=== PATIENT | male | born 1950 | race African-American/Black ===

== ENCOUNTER 2019-08-12 10:29 | Inpatient (IN) | payer OTHER ==
[~2019-08-12] VITALS: Ht 172.7 cm; Wt 65.1 kg
--- NOTE | ~2019-08-12 | HC ---
[facility] [place] [address] [address] CONSULTATION Name: SIS JEFFRIES Room #: 216-P ADM IN M.R.#: [id number] Admission: 08/12/19 Attend Phys: Wero Mack MD Discharge: Date of : 50 Report #: [id number] THIS REPORT FOR: //name// CC: Wero Garza HISTORY OF PRESENT ILLNESS: The patient is a 68-year-old male. He apparently was transferred here from [facility]. I have some limited records from the old records to obtain this history and he does not talk. He is alert, but has a prior trachea so difficult to have communication. He has a history of a mechanical mitral valve. The issue is he keeps bleeding significantly from his AV fistula due to presumably elevated pressures due to venous outflow problem. He has been seen at [facility] and sent home. He has not been dialyzed for the last 4 days. He says the hemoglobin down to 6.7. He denies chest pain, some mild dyspnea. No diagnostic EKG changes. He is given his medications, although he is currently is n.p.o. He is hypothermic and on a heating blanket, but he seems alert. Apparently, he has a history of recurrent Clostridium difficile colitis. MEDICATIONS: His home medications have been atorvastatin, Flonase, gabapentin, levothyroxine, Remeron, Protonix, sulfasalazine for a wound or an ulcer. Triamcinolone, vancomycin, warfarin, lorazepam, Zofran p.r.n. ALLERGIES: No known drug allergies. SOCIAL HISTORY: He is not . He has children, some alcohol and tobacco use, he states. FAMILY HISTORY: He does not believe there has been prior coronary history. There has been longstanding hypertension in his family. 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 He states he may have had an infarct and difficulty vena cava, possibly 2 bypasses with that valve. I do not have those records. Hypertension; hypercholesterolemia; anemia from AV fistula problems; end-stage renal disease, on dialysis; DJD; chronic hypoxemia with prior trach. LABORATORY DATA: INR is 3.0 this morning, we will repeat. Creatinine is 4.0, potassium 3.8, H and H are 7.4 and 22, white count 7.4. KUB shows a gastric tube and nonobstructive bowel gas. PHYSICAL EXAMINATION: GENERAL: He is currently, alert, in sinus rhythm. VITAL SIGNS: Blood pressure 104/60, pulse is 70s. HEENT: Eyes reveal xanthelasmas. Pharynx is clear. NECK: Shows preserved upstrokes without JVD or bruits. LUNGS: Marked prolonged expiratory phase. [facility] [address] [place] [address] CONSULTATION Name: SIS JEFFRIES Room #: 216-P [facility] IN M.R.#: [id number] Admission: 08/12/19 Attend Phys: Wero Mack MD Discharge: Date of : 50 Report #: [id number] CARDIOVASCULAR: S1, S2, distant heart tones. ABDOMEN: Soft, slightly protuberant, nontender. EXTREMITIES: Reveal there is a left BKA well healed. In the right, I cannot palpate DP or PT. There is a wound on the right knee and also on the sacral area and right heel. MUSCULOSKELETAL: Generalized arthritic changes with the left BKA. NEUROLOGIC: Appears to be intact. ASSESSMENT: 1. Mechanical mitral valve with INR 3.0. 2. Recurrent AV fistula bleeding due to suspected elevated pressures and venous stenosis (we will intervention by Dr. Milner in a.m.). 3. Hypertension. 4. Hypercholesterolemia. 5. Severe acute on chronic anemia. 6. End-stage renal disease, on hemodialysis. 7. Multiple decubiti as stated, nonhealing wounds. RECOMMENDATIONS AND PLAN: We are holding on the INR. We will repeat in the morning and the laboratory work per Renal. He is going to dialyze, but would like Dr. Milner to attempt intervention. Dr. Milner is okay to intervene with INRs less than 3. His cardiovascular status, I will obtain echo and EKG in the morning and try to obtain more cardiac history. Apparently, he has had a prior infarct and bypass, although there is no confirmation of this. We will follow with you. Thank you for asking me to assist in the care of this patient. By: [id number] /nt
[2019-08-12 10:32] VITALS: BP 115/65
[2019-08-12] MEDS ORDERED: LIPITOR10 MG PO (10:48)
[2019-08-12] MEDS ORDERED: NEURONTIN 300M300 M2 PO (10:48)
[2019-08-12] MEDS ORDERED: FLONASE 0.05%50 MCG NARES (10:48)
[2019-08-12] MEDS ORDERED: LEVO-T50 MCG PO (10:48)
[2019-08-12] MEDS ORDERED: REMERON15 M2 PO (10:49)
[2019-08-12] MEDS ORDERED: PROTONIX40 M2 PO (10:50)
[2019-08-12] MEDS ORDERED: LIQUID PROTEIN54 ML PO (10:51)
[2019-08-12] MEDS ORDERED: SSD CREAM 1% 5050 GM TOP (10:51)
[2019-08-12] MEDS ORDERED: TRIAMCINOLONE16.9 ML NASAL (10:52)
[2019-08-12 10:53] LABS: ABSOLUTE NEUTROPHILS 5.7 thou/uL (1.4-8.2); BASOPHILS 1.2 % (0.0-2.0); EOSINOPHILS 0.4 % (0.0-3.0); HEMATOCRIT 22.2 % (42.0-52.0); HEMOGLOBIN 7.4 gm/dL (14.0-18.0); MCH 33.3 pg (26.0-34.0); MCHC 33.3 g/dL (28.0-37.0); MCV 100.2 fL (80.0-100.0); MONOCYTES 9.7 % (1.0-8.0); PLATELET COUNT 120 thou/uL (150-400); POLYS 81.7 % (36.0-66.0); RBC 2.21 mil/uL (4.50-6.00); RDW 25.8 % (10.5-14.5); WBC 7.4 thou/uL (4.0-11.0)
[2019-08-12] MEDS ORDERED: VANCOMYCIN HCL250 MG PO (10:53)
[2019-08-12] MEDS ORDERED: COUMADIN 3 MG TA3 M1 PO (10:53)
[2019-08-12] MEDS ORDERED: ACETAMINOPHEN500 M1 PO (10:54)
[2019-08-12] MEDS ORDERED: LORAZEPAM 2MG2 MG/M1 IV PUSH (10:55)
[2019-08-12] MEDS ORDERED: ONDANSETRON4 MG/2 ML IV PUSH (10:56)
[2019-08-12 11:05] LABS: PROTIME 31.4 Seconds (9.3-11.4)
[2019-08-12 11:06] LABS: CALCIUM 8.4 mg/dL (8.5-10.1); MAGNESIUM 2.1 mg/dL (1.8-2.4); POTASSIUM 3.8 mmol/L (3.5-5.1)
[2019-08-12 11:19] LABS: ANISOCYTOSIS 3+; MACROCYTES 1+; MICROCYTES 1+; POLYCHROMASIA OCCASIONAL
[2019-08-12 11:29] VITALS: BP 102/57
[2019-08-12 12:39] VITALS: BP 99/59
--- NOTE | 2019-08-12 12:57 | NUR ---
PT FAMILY CALLED AND AWARE THAT PATIENT IS NOW IN ROOM 216
[2019-08-12 13:15] VITALS: BP 100/60
[2019-08-12 16:25] VITALS: BP 123/68
--- NOTE | 2019-08-12 18:49 | NUR ---
PT CAR ASSUMED APPROX 1315. PT ALERT AND ORIENTED X2 BUT APPROPRIATE IN CONVERSATION AND FOLLOWS COMMANDS. PT COMMUNICATING WITH WRITTEN WORDS. PT TRACH MASK PLACED WITH FACILITY EQUIPMENT UPON ARRIVAL. DENIES SOA AND PAIN. VSS UPON ARRIVAL BUT PT BECAME HYPOTHERMIC THIS EVENING. ORDER FOR KAYLEEN OLVERA OBTAINED. PT PLACED IN AT THIS TIME. PT DOBHOFF IS NOT COMPATIBLE WITH THIS FACILITY'S SYRINGES. DR ERVIN APPROVED TO WAIT AND GET PROMISE LIASON TO BRING COMPATIBLE SYRINGE. BRIDLE IN PLACE WELL AND IF DOBHOFF WERE CHANGED OUT THE BRIDLE COULD NOT BE REPLACED. TUBE FEEDING ON HOLD AND MEDS PER TUBE ARE BEING HELD. PT HAS GOOD IV ACCESS. FECAL MANAGEMENT SYSTEM PLACED TO NOT DISTRESS PT WITH MULTIPLE CLEAN UPS. CDIFF ISOLATION INITIATED. DAUGHTER WAS UNABLE TO ASSIST WITH ADMISSION DUE TO BEING AT WORK. PT PARTIALLY PARTICIPATED. NO DISTRESS NOTED AT THIS TIME.
[2019-08-12 21:53] VITALS: BP 108/64
[2019-08-13] VITALS (46 sets, daily range): BP systolic 81–177; BP diastolic 29–74
[2019-08-13 05:00] LABS: HEMATOCRIT 21.3 % (42.0-52.0); MCH 33.1 pg (26.0-34.0); MCHC 33.1 g/dL (28.0-37.0); MCV 100.2 fL (80.0-100.0); RBC 2.13 mil/uL (4.50-6.00); RDW 27.1 % (10.5-14.5); WBC 6.5 thou/uL (4.0-11.0)
--- NOTE | 2019-08-13 05:03 | NUR ---
PT ALERT AND ORIENTED X2. VITALS STABLE. TRACH INTACT. SUCTIONED PERIODICALLY. O2 SATS 100%. EPISODES OF ANXIOUSNESS, TRYING TO CLIMB OUT OF BED NOTED. PT EASILY REORIENTED. CONTACT PRECAUTION MAINTAINED FOR C-DIFF. POSSIBLE FISTULA GRAFT REPAIR TODAY, DEPENDING ON INR. WILL CONTINUE TO MONITOR.
[2019-08-13 05:10] LABS: CALCIUM 8.3 mg/dL (8.5-10.1); CREATININE 4.4 mg/dL (0.7-1.3); POTASSIUM 3.8 mmol/L (3.5-5.1)
[2019-08-13 05:19] LABS: INR 2.4; PROTIME 25.2 Seconds (9.3-11.4)
--- NOTE | 2019-08-13 07:57 | EKG ---
[address] [address] ELECTROCARDIOGRAM REPORT Name: NESHASIS Room #: 216-P ADM IN M.R.#: [id number] Admission: 08/12/19 Attend Phys: Wero Mack MD Discharge: Date of : 50 Report #: [id number] THIS REPORT FOR: //name// [facility] ED Test Date: 2019-08-12 Test Time: 10:42:09 Pat Name: SIS JEFFRIES Department: Room: 216 Gender: M Community Service Coordinator: shi : 1950 Requested By: Venkatesh Tomlin Order Number: [id number] MD: Milo Blankenship Measurements Intervals [place] Rate: 77 P: MA: QRS: 102 QRSD: 118 T: 128 QT: 415 QTc: 470 Interpretive Statements Sinus rhythm Nonspecific intraventricular conduction delay Nonspecific T abnrm, anterolateral leads No previous ECG available for comparison Electronically Signed On 08-13-2019 7:57:41 FIRE ALARM DISPATCHER by Milo Blankenship [email or web address] <ELECTRONICALLY SIGNED> By: Milo Blankenship MD, MERGED WITH [facility] 08/13/19 0757 1042 1042 Milo Blankenship MD, FACC /EPI
--- NOTE | 2019-08-13 08:26 | EKG ---
[address] [address] ELECTROCARDIOGRAM REPORT Name: RASHEEDA JEFFRIESSTELLA Room #: 216-P ADM IN M.R.#: [id number] Admission: 08/12/19 Attend Phys: Wero Mack MD Discharge: Date of : 50 Report #: [id number] THIS REPORT FOR: //name// [facility] Test Date: 2019-08-13 Test Time: 07:26:08 Pat Name: SIS JEFFRIES Department: Room: 216 P Gender: M Electronic Semiconductor Processor: Yohannes PRICE : 1950 Requested By: Main [place]ro Order Number: [id number] MD: Milo Blankenship Measurements Intervals [place] Rate: 81 P: -2 DE: 291 QRS: 122 QRSD: 116 T: 144 QT: 410 QTc: 476 Interpretive Statements Sinus rhythm Rightward axis Nonspecific intraventricular conduction delay Nonspecific T abnormalities, lateral leads Compared to ECG 08/12/2019 10:42:09 No significant change was found Electronically Signed On 08-13-2019 8:25:58 PROMPT CARE RN by Milo Blankenship [email or web address] <ELECTRONICALLY SIGNED> By: Milo Blankenship MD, [facility] 08/13/19 0825 5 5 Milo Blankenship MD, [facility] /EPI
--- NOTE | 2019-08-13 11:23 | NUR ---
WOUND CONSULT; THE LEFT KNEE WOUND IS ALMOST HEALED 0.3 X 0.3 X 0.1, NO S/S OF INFECTION WITH A HEALTHY WOUND BED. THE RIGHT HEEL HAS FIBRINOUS TISSUE IN THE WOUNDBED, NO S/S OF INFECTION AND THE SACRUM HAS FIBRINOUS TISSUE IN THE WOUND BED WI9TH NO S/S OF INFECTION. RECOMMENDATIONS THERAHONEY TO THE RIGHT KNEE AND SACRUM M/W/F PRN. XEROFORM AND BOARDER FOAM TO THE RIGHT HEEL. DISCUSSED WITH AMRIT
--- NOTE | 2019-08-13 12:00 | NUR ---
Recommend continue nepro at 50ml/hr until determined if pt will be able to take po by ST. Defer fluid needs to physician/renal
--- NOTE | 2019-08-13 12:24 | 2DMMODE ---
[facility] [place] [address] 2 D/M-MODE ECHOCARDIOGRAM Name: DREWSIS Pelaez Room #: 216-P ADM IN .R.#: [id number] Admission: 08/12/19 Attend Phys: Wero Mack MD Discharge: Date of : 50 Report #: [id number] THIS REPORT FOR: //name// APPROVED REPORT Study performed: 08/13/2019 10:49:59 EXAM: Comprehensive 2D, Doppler, and color-flow Echocardiogram Patient Location: Bedside Room #: 216 Status: routine BSA: 1.59 HR: 69 bpm BP: 107/61 mmHg Rhythm: NSR Other Information Study Quality: Good Indications Murmur MVR 2D Dimensions RVDd: 44.45 mm IVSd: 11.02 (7-11mm) LVOT Diam: 18.75 (18-24mm) LVDd: 41.42 mm PWd: 10.84 (7-11mm) Ascending Ao: 32.09 (22-36mm) LVDs: 28.43 (25-40mm) Aortic Root: 35.30 mm IVC: 27.00 mm Aortic Valve AoV Peak Francisco.: 1.23 m/s AO Peak Gr.: 6.02 mmHg LVOT Max P.17 mmHg LVOT Max V: 0.89 m/s RYAN Vmax: 2.00 cm2 Mitral Valve MV Peak Gr.: 6.37 mmHg MV Mean Gr.: 1.83 mmHg E/A Ratio: 2.2 MV Decel. Time: 170.85 ms MV E Max Francisco.: 1.13 m/s MV A Francisco.: 0.51 m/s MV Max Francisco.: 1.26 m/s MV Mean Francisco.: 0.63 m/s [facility] [address] [place] [address] 2 D/M-MODE ECHOCARDIOGRAM Name: NESHASIS Room #: 216-[facility] IN ..#: [id number] Admission: 08/12/19 Attend Phys: Wero Mack MD Discharge: Date of : 50 Report #: [id number] MV VTI: 271.87 mm MV PHT: 49.55 ms Pulmonary Valve PV Peak Francisco.: 0.85 m/s PV Peak Gr.: 2.86 mmHg Tricuspid Valve TR Peak Francisco.: 4.27 m/s TR Peak Gr.: 72.80 mmHg PA Pressure: 83.00 mmHg Left Ventricle The left ventricle is normal size. Flattened septum consistent with right ventricular volume and pressure overload. There is normal left ventricular wall thickness. The left ventricular systolic function is normal. The left ventricular ejection fraction is within the normal range. LVEF is 55-60%. The left ventricular diastolic function is abnormal. Right Ventricle Right ventricle is dilated. Right ventricular systolic function is borderline normal. Atria Left atrium is dilated. Right atrium is dilated. Aortic Valve The aortic valve is normal in structure. Aortic valve is calcified. No aortic regurgitation is present. There is no aortic valvular stenosis. Mitral Valve There is a mechanical mitral valve. Mild mitral regurgitation. No evidence of mitral valve stenosis. Tricuspid Valve The tricuspid valve is normal in structure. There is severe tricuspid regurgitation. Estimated PAP 83 mmHg. There is severe pulmonary hypertension. Pulmonic Valve The pulmonary valve is normal in structure. Mild pulmonic regurgitation. Great Vessels The aortic root is normal in size. IVC is dilated and collapses [facility] [address] [place] [address] 2 D/M-MODE ECHOCARDIOGRAM Name: SIS JEFFRIES Room #: 216-P ADM IN M.R.#: [id number] Admission: 08/12/19 Attend Phys: Wero Mack MD Discharge: Date of : 50 Report #: [id number] <50% with inspiration. Pericardium Small pericardial effusion. Large pleural effusion. <Conclusion> The left ventricle is normal size. LVEF is 55-60%. Flattened septum consistent with right ventricular volume and pressure overload. Right ventricle is dilated. Right ventricular systolic function is borderline normal. Left atrium is dilated. Right atrium is dilated. The aortic valve is normal in structure. Aortic valve is calcified. There is a mechanical mitral valve. Mild mitral regurgitation. The tricuspid valve is normal in structure. There is severe tricuspid regurgitation. Estimated PAP 83 mmHg. There is severe pulmonary hypertension. The pulmonary valve is normal in structure. Mild pulmonic regurgitation. Small pericardial effusion. <ELECTRONICALLY SIGNED> By: Tima Waller MD 08/13/19 1224 23 23 Tima Waller MD /INF
--- NOTE | 2019-08-13 13:59 | NUR ---
PATIENT ADMITS FROM [facility]. REC CONSULT TO ASSIST WITH SUPPLIES FROM [facility]. SP WITH ADMISSIONS AND LIASON. ABLE TO REC SUPPLIES FOR TRACH/PEG TUBE. PATIENT ADMITS WITH DIALYSIS SHUNT COMPLICATION. PLAN RETURN TO [facility] ONCE STABLE. SP WITH DTR WHO IS AGREEABLE WITH PLAN. PATIENT CURRENTLY IN PROCEDURE. [facility] FOLLOWING.
--- NOTE | 2019-08-13 15:51 | NUR ---
Patient stable when leaving IR lab 4. Once in holding BP dropped to SBP 70s/ DBP 30s. Place patient in semi trendelenburg, increased IVF. Patient BP did not improve. Notified Dr Mack, Dr Bonilla-Milvia. Recieved orders to transfer patient to ICU. Give additional 1L NS bolus and 25mg IV Albumin now.
--- NOTE | 2019-08-13 16:44 | NUR ---
ASSUMED CARE PT SHIFT CHANGE. ASSESSMENT CHARTED. NOON ASSESSMENT NOT DOCUMENTED DUE TO PT BEING OFF FLOOR IN PROCEDURE. PT ALERT AND ORIENTED X2, FORGETFUL AND CONFUSED AT TIMES. BEDREST PT LEFT BKA, WOUNDS ON RIGHT LEG AND SACRUM DRESSED BY WOUND CARE. PT ANURIC, FECAL TUBE SYSTEM IN PLACE. PT TO HAVE VENOGRAM WITH POSSIBLE INTERVENTION FOR LEFT DIALYSIS FISTULA, CONSENT SIGNED, DAUGHTERS YUSUF AND EMMETT CALLED AND UPDATED AND IN AGREEANCE WITH PROCEDURE. PT BLOOD GLUCOSE AT 50 BEFORE PROCEDURE-- DEXTROSE GIVEN, LAST BS 71. DISABILITY LIAISON OFFICER CALLED WITH REPORT SAYING PT BP IN 70S/40S AND NOT COMING UP, PT TO TRANSFER TO ICU. REPORT GIVEN TO NURSE MATHEWS.
--- NOTE | 2019-08-13 17:36 | NUR ---
PT WAS BROUGHT TO ICU FROM IR VERY COLD AND HYPOTHERMIC TO THE TOUCH. I ASKED THE IR NURSE WHAT THE PATIENT'S TEMPERATURE WAS AND SHE STATED SHE DID NOT KNOW. WAS ABLE TO GET A SKIN PROBE WHICH REVEALS A TEMP OF 30 DEGREES CELCIUS. PT IS HYPOTHERMIC AT THIS TIME. PT WAS ALSO HYPOTENSIVE WITH A CARL LESS THAN 65. SPOKE WITH DR. RICHARDSON WHO GAVE ORDER FOR LEVOPHED GTT AND ALBUMIN IV. WILL CHECK BCX2. PT ORIENTED TO ICU ROOM 248. ALL MONITORS PLACED ON PT AND FORM LAYER AT BEDSIDE. WILL CONTINUE TO ASSESS.
[2019-08-14] VITALS (57 sets, daily range): BP systolic 95–134; BP diastolic 51–81
--- NOTE | 2019-08-14 02:29 | NUR ---
PT C/O FEELINGS OF FULLNESS IN STOMACH. STOPPED TUBE FEEDINGS AND WILL RECHECK IN A COUPLE HOURS.
--- NOTE | 2019-08-14 05:50 | NUR ---
PT CONTINUES TO REMAIN RESTLESS OFF AND ON ALL NIGHT. ASKING FOR FOOD, JELLO OR APPLESAUCE. INTRUCTED HE CAN'T HAVE ANYTHING TO EAT OR DRINK. HAD STARTED TUBE FEEDS POST HD LAST NIGHT AROUND 2250 AND THEN PT BECAME INTOLERANT OF C/O FULLNESS IN HIS BELLY DIFFICULT TO DISCERN IF THAT IS HIS ASCITES OR WAS THE TUBE FEED. PT REMAINS ON LEVO GTT VERY LOW DOSE OF 2MCG/MIN CURRENTLY AND COULD ATTEMPT TO WEAN OFF BEFORE DAY SHIFT. ABLE TO GET ACCURATE ORAL TEMP NOW INSTEAD OF AXILLARY PROBE MONITORING WHICH BELIEVED TO BE A FALSE READING PRIOR LAST NIGHT. REMAINS ON T-TUBE VIA TRACH AT 35% FIO2 SATS 100% LAB STILL TO COME DRAW AM LABS.
--- NOTE | 2019-08-14 09:44 | HC ---
[facility] [place] [address] [place] [address] CONSULTATION Name: SIS JEFFRIES Room #: 248-P ADM IN M.R.#: [id number] Admission: 08/12/19 Attend Phys: Wero Mack MD Discharge: Date of : 50 Report #: [id number] THIS REPORT FOR: //name// CC: Wero Garza REASON FOR CONSULTATION: End-stage renal disease. REASON FOR PRESENTATION: Bleeding from his AV fistula. HISTORY OF PRESENT ILLNESS: The patient is a 68-year-old who is well known to me from another facility. He was recently evaluated at [facility] facility for failure to wean off the vent. He was transferred there from [facility] after being treated in [facility] for extensive issues including respiratory failure, C. diff, cirrhosis of the liver with fluid overload. He is end-stage renal disease patient who is maintained on hemodialysis every Tuesday, Tuesday and Tuesday. He is also known to have mitral valve prosthesis and is chronically maintained on Coumadin. He has history of peripheral vascular disease and ended up with a left below-knee amputation few years ago. He had major issues with bleeding from his AV fistula while at the LTAC facility. He is chronically anticoagulated as stated above by taking Coumadin. The patient was sent to [facility] to be evaluated on Tuesday night; however, the patient was sent back to his LTAC facility. It was felt that the patient is not safe to be in that facility due to continued bleeding from his AV fistula after each dialysis. His hemoglobin was down to 6.7 as of Tuesday. He has not received dialysis since Tuesday. It was felt that it is in the patient's best interest to be transferred to an acute care hospital where we could address his central stenosis of his AV fistula by doing a fistulogram and an angioplasty of a potential stenotic lesion. MEDICATIONS: 1. Atorvastatin. 2. Gabapentin. 3. Mirtazapine. 4. Vancomycin. 5. Warfarin. 6. Zofran. ALLERGIES: None. PAST MEDICAL HISTORY: 1. End-stage renal disease. 2. Liver cirrhosis. 3. Ascites. 4. Mitral valve prosthesis. 5. Recent Clostridium difficile. 6. Recent vancomycin-resistant Enterococcus bacteremia. [address] [address] CONSULTATION Name: SIS JEFFRIES Room #: 248-P [facility] IN .R.#: [id number] Admission: 08/12/19 Attend Phys: Wero Mack MD Discharge: Date of : 50 Report #: [id number] 7. Respiratory failure. 8. Status post tracheostomy. 9. Left AV fistula with central stenosis. 10. Status post left below knee amputation. 11. Status post tracheostomy. SOCIAL HISTORY: He now resides in the [facility]. No reported drug or alcohol abuse. FAMILY HISTORY: Unobtainable given the patient's current medical conditions and tracheostomy status. PHYSICAL EXAMINATION: GENERAL: The patient is alert, awake. VITAL SIGNS: Temperature is 36.5, pulse rate is 80, blood pressure is 107/61. He has a tracheostomy and is currently maintained on T-piece. HEAD AND NECK: Tracheostomy in place. CHEST: Decreased air entry bilaterally with minimal rhonchi. CARDIOVASCULAR: No rub detected. Mitral valve click present. ABDOMEN: Distended with significant ascites. EXTREMITIES: Lower extremities, left below knee amputation. Upper extremities with left brachiobasilic AV fistula with a nice thrill and bruit; however, the left upper extremity is swollen and highly suggestive of central stenosis. LABORATORY VALUES: Sodium 130, BUN 95, creatinine 4.4, potassium 3.8. INR of 2.4, hemoglobin of 7, platelets of 99. ASSESSMENT AND IMPRESSION AND PLAN: 1. Malfunctioning left AV fistula. 2. End-stage renal disease, maintained on hemodialysis every Tuesday, Tuesday and Tuesday. 3. Mitral valve prosthesis maintained on chronic anticoagulation. 4. Respiratory failure post-tracheostomy. 5. Liver cirrhosis with recurrent ascites. 6. Thrombocytopenia. 7. Anemia. 8. Recent vancomycin-resistant Enterococcus bacteremia. 9. Hyponatremia. 10. Hypoglycemia. 11. Very complex and complicated patient, who needed to be transferred from an LTAC facility to an acute care facility. Plan is for Dr. Mack to do an AV fistulogram and necessary intervention for potential central stenosis. Once this is fixed, we will dialyze the patient appropriately today. 12. Cardiology is following regarding his chronic anticoagulation for his mitral valve. 13. Continue with the C. diff treatment. [address] [address] CONSULTATION Name: SIS JEFFRIES Room #: 248-P [facility] IN M.R.#: [id number] Admission: 08/12/19 Attend Phys: Wero Mack MD Discharge: Date of : 50 Report #: [id number] 14. Known recurrent ascites issues related to his liver disease. We will attempt to control with aggressive ultrafiltration with dialysis. 15. Peripheral vascular disease and wound care. Continue with the wound care. <ELECTRONICALLY SIGNED> By: Della Rivero MD 08/14/19 0944 0848 1057 Della Rivero MD /nt
[2019-08-14 10:24] LABS: HEMOGLOBIN 6.8 gm/dL (14.0-18.0); RBC 2.05 mil/uL (4.50-6.00)
[2019-08-14 10:26] LABS: MCH 33.1 pg (26.0-34.0); MCHC 32.4 g/dL (28.0-37.0); MCV 102.2 fL (80.0-100.0); RDW 27.1 % (10.5-14.5); WBC 6.6 thou/uL (4.0-11.0)
[2019-08-14 10:36] LABS: INR 2.3; PROTIME 24.1 Seconds (9.3-11.4)
[2019-08-14 10:38] LABS: CALCIUM 8.7 mg/dL (8.5-10.1); POTASSIUM 3.6 mmol/L (3.5-5.1)
[2019-08-14 10:39] LABS: CREATININE 2.7 mg/dL (0.7-1.3)
[2019-08-14 11:05] LABS: ABSOLUTE NEUTROPHILS 5.1 thou/uL (1.4-8.2); ANISOCYTOSIS 2+; HYPOCHROMASIA 2+; MACROCYTES 2+; METAMYELOCYTES 1 %; PLATELET COUNT 116 thou/uL (150-400); PLATELET ESTIMATE NORMAL
[2019-08-14 11:06] LABS: POLYCHROMASIA 1+
--- NOTE | 2019-08-14 12:52 | NUR ---
FOLLOWING FOR DC PLANNING. CLINICAL INFO REVIEWED. PT HAD WENT TO IR FOR FISTULAGRAM AND INTERVENTION AND BECAME HYPOTENSIVE REQUIRNG LEVOPHED GTT OVERNIGHT AND ICU TRANSFER. LEVO OFF SINCE EARLY THIS AM. FISTULA FUNCTIONAL. CT ABD PLANNED TODAY R/T ABD PAIN AND SWELLING. UPDATE TO [facility]. PER RUDOLPH, [facility] WOULD LIKE RETURN BY 08/20/19. PER DR. ERVIN, NOT MEDICALLY READY TODAY. REQUESTED DC MANAGER WEB FAX UPDATES TO [facility] ADMISSIONS.
--- NOTE | 2019-08-14 14:46 | NUR ---
ASSUMED CARE OF PATIENT AT 0700. PT COMPLANING OF SEVERE ABDOMINAL PAIN. ABDOMEN FIRM AND DISTENDED. TUBE FEEDINGS ON HOLD OVER NOC DUE TO ABDOMINAL DISCOMFORT. SPOKE WITH DR. ERVIN - ORDERS FOR PRN FENTANYL AND CT ABD/PELVIS. AM LABS DRAWN WITH HGB. 6.8 - PER DR. KING, WOULD LIKE TO HOLD OFF ON 1 UNIT PRBC UNTIL DIALYSIS ON 08/15/19. CT SCAN DONE. CONSULT FOR IR. PATIENT TO HAVE PARACENTSIS TODAY. CONSENT SIGNED BY TWO RN'S AFTER WITNESSING VERBAL CONSENT BY PATIENT. WILL RE-START TUBE FEEDINGS AFTER PARACENTESIS AND ADVANCE TOLERATED. PT HAD EPISODE THIS AFTERNOON WHERE HE PULLED OUT HIS TRACH. NO HYPOXIA NOTED. PT TALKING DURING THE DURATION OF TRACH DISLODGEMENT. TWO RN'S AND RT AT BEDSIDE TO RE-INSERT TRACH. PHYSICIAN NOTIED.
--- NOTE | 2019-08-14 14:58 | NUR ---
[facility] SPOKE WITH RUDOLPH IN ADM HE RECEIVED UPDATE. DP TO FOLLOW.
[2019-08-14 16:20] LABS: BF NUCLEATED CELLS 196; BF RBC 556
[2019-08-14 16:22] LABS: CLARITY SLIGHTLY CLOUDY; COLOR YELLOW; SOURCE ABDOMINAL; TOTAL VOLUME 60 mL
[2019-08-14 18:20] LABS: BF NEUTROPHILS 7
[2019-08-14 18:21] LABS: BF MACROPHAGE 72
--- NOTE | 2019-08-14 18:38 | NUR ---
REPORT GIVEN AT BEDSIDE TO MONCHO MARCUS. PT TRANSPORTED TO ROOM 352. TELE APPLIED AND TUBE FEEDING STARTED. INSTRUCT MONCHO TO CHECK BLOOD SUGAR AND TREAT IF NEEDED.
--- NOTE | 2019-08-14 18:43 | NUR ---
ASSUMED CARE OF PT FROM ARRIVAL TO ICU AT APPROX 1815. BLOOD SUGAR 40. ONE AMP D50 GIVEN. TUBE FEEDING STARTED. PT ALERT AND ORIENTED, IN NO ACUTE DISTRESS. WILL RECHJECK SUGAR IN APPROX 15 MIN AND TREAT ACCORDINGLY. D5 INFUSING PER ORDER.
[2019-08-15 04:15] VITALS: BP 119/61
[2019-08-15 05:35] LABS: HEMATOCRIT 25.3 % (42.0-52.0); HEMOGLOBIN 8.5 gm/dL (14.0-18.0); MCH 35.1 pg (26.0-34.0); MCHC 33.7 g/dL (28.0-37.0); RBC 2.43 mil/uL (4.50-6.00); RDW 27.8 % (10.5-14.5); WBC 5.8 thou/uL (4.0-11.0)
[2019-08-15 06:01] LABS: INR 2.6; PROTIME 26.5 Seconds (9.3-11.4)
--- NOTE | 2019-08-15 06:33 | NUR ---
FOLLOWING POC WITH TUBE FEEDING AND Q4 WATER FLUSHES. GOAL RATE IS 50ML AND 50ML/HR IS INFUSING. IVF GTT. ACCU CHECKS Q6 SHOW BLOOD SUGAR AT 123. PT REMOVED FECAL TUBE X2. REPLACED, AND PT AGAIN REMOVED. PT HAD X5 BOWEL MOVEMENTS. REWRAPPED RIGHT FOOT WITH KERLEX AFTER DRESSING SOILED. PT CAN USE CALL LIGHT TO EXPRESS NEEDS AND CAN WRITE TO VOICE NEEDS.
[2019-08-15 07:22] VITALS: BP 141/71
[2019-08-15 08:30] LABS: SOURCE ABDOMINAL
--- NOTE | 2019-08-15 09:26 | NUR ---
PT SLIGHTLY COMBATIVE TODAY. INSTRUCTED PT TO NOT PULL OUT RECTAL TUBE IT IS PLACED FOR HIS BENEFIT TO PREVENT SKIN BREAKDOWN. PT TRIED TO KICK ME AND LATER TOLD DR AND STRIP PRESSER THAT I CALLED HIM A RACIAL SLUR WHICH I DID NOT. I WAS WITH RANDELL MARCUS IN PT'S ROOM THE TIME HE STATES I DID THIS AND RANDELL CAN ATTEST I NEVER USED SUCH LANGUAGE. PT ALSO PULLED OUT TRACH YESTERDAY AND THREW IT AT [facility] MARCUS. PT WILL RECIEVE DIALYSIS TODAY AND RETURN TO SNF. WILL CONTINUE TO ASSESS.
--- NOTE | 2019-08-15 10:39 | NUR ---
WOUND CARE FOLLOW UP; THE SACRUM WOUND IS CONTAMINATED WITH STOOL. THE WOUND IS UNCHANGED. THE RIGHT HEEL WOUND AND THE RIGHT KNEE WOUNDS ARE MINIMALLY BETTER TODAY. RECOMMENDATIONS; CONTINUE CURRENT TREATMENT. TRY TO PROTECT THE SACRAL DRESSING WITH A VAC DRAPE. DISCUSSED WITH AMRIT
--- NOTE | 2019-08-15 12:19 | NUR ---
PT HAVING DIALYSIS AT BEDSIDE.
--- NOTE | 2019-08-15 14:28 | NUR ---
DISCHARGE ORDERS COMPLETED PER ATTENDING AND FAXED TO [facility] ADMISSIONS LIAISON. CHART COPY COMPLETED PER DOCUMENT ANALYST. TRANSPORTATION ARRANGED THROUGH [facility], 1700 HOURS. CONTACT NUMBER FOR NURSE TO NURSE REPORT PROVIDED. CALL PLACED TO DAUGHTER YUSUF, VOICE MAIL LEFT FOR HER.
--- NOTE | 2019-08-15 14:36 | NUR ---
DISCHARGE NOTE: SW reviewed chart and spoke with nursing and attending physician. Pt was transferred to 3W from ICU and is medically stable for discharge to [facility] today after dialysis. Pt currently having dialysis. SW updated [facility] liaison, who states they can accept pt after 1600. land planner faxed discharge orders/summary and arranged ambulance transportation for 1700. Pt's dtr notified. Chart copy requested. Nursing to call report. No additional SW needs identified at this time, but is available to assist should needs arise.
[2019-08-15 15:08] LABS: BODY FLUID ALBUMIN 1.6 g/dL (Not Estab.); BODY FLUID AMYLASE 29 U/L (()); BODY FLUID GLUCOSE 86 mg/dL (()); BODY FLUID LDH 137 IU/L (()); BODY FLUID PROTEIN 3.6 g/dL (())
[2019-08-15 16:10] VITALS: BP 110/59
--- NOTE | 2019-08-15 16:20 | NUR ---
REPORT CALLED TO DENYS AND LAURA RN REQUESTED THAT I LEAVE PERIPHERAL IV IN. PT TO BE PICKED UP BY TRANSPORT AROUND 1730. WILL CONTINUE TO ASSESS.
--- NOTE | 2019-08-15 17:48 | NUR ---
PT TRANSPORTED TO [facility] VIA [facility].
--- NOTE | 2019-08-20 08:06 | PATH ---
[facility] [address] [place] [place] [address] PATHOLOGY RPT PROCEDURE Name: SIS JEFFRIES Room #: 352-P DIS IN M.R.#: [id number] Admission: 08/12/19 Date of : 50 Discharge: 08/15/19 Report #: [id number] Path Case #: [id number] Note [facility] Accession Number: [id number] TESTS RESULT FLAG UNITS REF RANGE LAB Clinician Provided Cytology Information No. of containers..01 Other (Miscellaneous) Source: ABDOMINAL FLUID DIAGNOSIS: 02 ABDOMINAL FLUID NEGATIVE FOR MALIGNANT EPITHELIAL CELLS. MESOTHELIAL CELLS ARE PRESENT. THIS INTERPRETATION INCLUDES EVALUATION OF A CELL BLOCK. Signed out by: 02 Annette Woo MD, Pathologist NPI- [id number] Performed by: 01 Veronique Smith, Plant General Manager ([facility]) Gross description: 01 25 ML, YELLOW, CLEAR /LCS 09/18/1840 0000 Local FLAG LEGEND: L-Low Normal,H-High Normal,LL-Alert Low,HH-Alert High <-Panic Low,>-Panic High,A-Abnormal,AA-Critical Abnormal Performed at: [address] [place] [address] Aydin Mercedes MD, [address] [address] Annette Woo MD, Specimen Comment: A courtesy copy of this report has been sent to [phone] Specimen Comment: [id number] Specimen Comment: [id number] Specimen Comment: Report sent to / DR MCCONNELL Specimen Comment: Report sent to Performed at: [address], [place], [place] [id number] MD Aydin Mercedes MD Phone: [phone]
== END 2019-08-15 18:02 | DRG 252 ==
LOC: ER 10:29 → EROBS 11:54 → 2N 11:54 → ICU 08-13 16:33 → 3W 08-14 17:46
PROVIDERS: Emergency Medicine; Internal Medicine Cardiovascular Disease; Nurse Practitioner Adult Health; ADMIT Hospitalist
DX: T82.858A Stenosis of other vascular prosthetic devices, implants and grafts, initial encounter (principal); N18.6 End stage renal disease; E43 Unspecified severe protein-calorie malnutrition; D65 Disseminated intravascular coagulation [defibrination syndrome]; E87.1 Hypo-osmolality and hyponatremia; R18.8 Other ascites; A04.72 Enterocolitis due to Clostridium difficile, not specified as recurrent; J96.11 Chronic respiratory failure with hypoxia; I12.0 Hypertensive chronic kidney disease with stage 5 chronic kidney disease or end stage renal disease; T82.847A Pain due to cardiac prosthetic devices, implants and grafts, initial encounter; T82.838A Hemorrhage due to vascular prosthetic devices, implants and grafts, initial encounter; E11.22 Type 2 diabetes mellitus with diabetic chronic kidney disease; Z99.2 Dependence on renal dialysis; E78.00 Pure hypercholesterolemia, unspecified; M19.90 Unspecified osteoarthritis, unspecified site; D64.9 Anemia, unspecified; K74.60 Unspecified cirrhosis of liver; E78.5 Hyperlipidemia, unspecified; E11.649 Type 2 diabetes mellitus with hypoglycemia without coma; E11.51 Type 2 diabetes mellitus with diabetic peripheral angiopathy without gangrene; Z82.49 Family history of ischemic heart disease and other diseases of the circulatory system; Z89.512 Acquired absence of left leg below knee; Z93.0 Tracheostomy status; Z79.01 Long term (current) use of anticoagulants; Z68.21 Body mass index [BMI] 21.0-21.9, adult; Y83.8 Other surgical procedures as the cause of abnormal reaction of the patient, or of later complication, without mention of misadventure at the time of the procedure
CPT/HCPCS: 10078; 10081; 10879; 32100

== ENCOUNTER 2019-08-21 12:49 | Inpatient (IN) | payer OTHER ==
[2019-08-21] VITALS (34 sets, daily range): BP systolic 66–135; BP diastolic 26–74
--- NOTE | ~2019-08-21 | HC ---
[facility] [place] [address] CONSULTATION Name: SIS JEFFRIES Room #: 241-P [facility] IN M.R.#: [id number] Admission: 08/21/19 Attend Phys: Seferino Chacon MD Discharge: 08/29/19 Date of : 50 Report #: [id number] THIS REPORT FOR: //name// CC: Vishnu Chacon DATE OF SERVICE: 08/28/2019 PALLIATIVE CARE CONSULTATION CHIEF COMPLAINT: Small-bowel obstruction. HISTORY OF PRESENT ILLNESS: The patient is a 68-year-old male who presented initially to [facility] from [facility] with what was suspected to be aspiration pneumonia. He has a history of tracheotomy on 07/17/2019. The patient has had chronic respiratory failure. He also has chronic anemia, which had worsened apparently on admission to 6.0 hemoglobin, has received transfusions. He also has end-stage renal disease for which he is on dialysis. Additionally, he has cirrhosis and thrombocytopenia. The patient currently have sedation and he appears to be a poor attention level. He is not able to express levels of comfort or any discomfort that he is experiencing. PAST MEDICAL HISTORY: Mechanical aortic valve, cirrhosis, anemia of chronic disease, thrombocytopenia, recent VRE bacteremia, ileus, PEG tube, chronic diastolic congestive heart failure, multiple decubitus ulcers, tracheostomy. SOCIAL HISTORY: Tobacco abuse history, which is significant. No significant alcohol use history noted. There are multiple daughters involved in decision making, but primary daughter who I have reached is Shannan, also daughter Stephanie and sounds like a spouse as well who I have not reached as of yet. ALLERGIES: No known drug allergies. FAMILY HISTORY: Noncontributory. MEDICATIONS: DuoNeb, Zofran, Ativan, potassium, Levaquin, heparin, Merrem, vancomycin, famotidine, morphine. REVIEW OF SYSTEMS: Unable to obtain due to present medical condition. PHYSICAL EXAMINATION: VITAL SIGNS: Temperature 36.0, pulse 71, respirations 13, blood pressure 118/59, 100% on room air. GENERAL: The patient is not alert. His attention level appears to be poor. We will not arouse to verbal or touch stimuli. [facility] [address] [place] [address] CONSULTATION Name: SIS JEFFRIES Room #: 241-P [facility] IN M.R.#: [id number] Admission: 08/21/19 Attend Phys: Seferino Chacon MD Discharge: 08/29/19 Date of : 50 Report #: [id number] HEENT: Unable to assess fully today. CARDIOVASCULAR: Regular rate and rhythm with murmur present. LUNGS: Clear to auscultation anteriorly ventilated via tracheostomy. ABDOMEN: Diffuse distention noted. Does not grimace to palpation. Tympany is noted, though. LABORATORY DATA: Again, hemoglobin 7.8, creatinine 2.5, sodium 132. ASSESSMENT AND PLAN: 1. Small-bowel obstruction appeared to be worsening on recent imaging. At this point in time, I have discussed this with daughter, Shannan. I have discussed that code status would need to be established as he is currently listed as full code. He may not benefit from this kind of intervention at least with CPR in the future if we were to come to this, certainly it could be disastrous for his overall condition and not likely to repair or improve his condition. Did discuss extensively hospice options and palliative options. Did discuss this in context of also his LTAC admission. Discussed that it is possible for this to worsen. Discussed it is possible for aspiration pneumonia to recur, despite precautions. Discussed that his overall prognosis appears to be poor given the level of the overall physical condition and multiple organ failure, but however, did discuss options for continued care at this time as well. Daughter wish to discuss with other family members prior to making any decisions at this time. 2. End-stage renal disease, currently with dialysis. Again, considering all factors and anemia, the patient is potentially a poor overall prognosis long-term. 3. Cirrhosis. At this point in time, contribute significantly to his overall care. 4. Anemia. Again contributing to his overall prognosis. I have spent approximately 30 minutes in discussion of advanced care planning today. Thank you very much for this consultation. We will follow up tomorrow to determine if further discussion is needed. By: [id number] Rickie Roberson DO /nt
[~2019-08-21 12:49] MED LIST: ACETAMINOPHEN500 M1 PO; COUMADIN 3 MG TA3 M1 PO; FLONASE 0.05%50 MCG NARES; LEVO-T50 MCG PO; LIPITOR10 MG PO; LIQUID PROTEIN54 ML PO; LORAZEPAM 2MG2 MG/M1 IV PUSH; NEURONTIN 300M300 M2 PO; ONDANSETRON4 MG/2 ML IV PUSH; PROTONIX40 M2 PO; REMERON15 M2 PO; SSD CREAM 1% 5050 GM TOP; TRIAMCINOLONE16.9 ML NASAL; VANCOMYCIN HCL250 MG PO
[2019-08-21 15:23] LABS: CALCIUM 8.4 mg/dL (8.5-10.1); CREATININE 2.3 mg/dL (0.7-1.3); POTASSIUM 4.1 mmol/L (3.5-5.1)
[2019-08-21 15:55] LABS: BE(vivo) 6.1 mmol/L (-2 to +3); HCO3 28.2 mmol/L (22.0-26.0); PCO2 30.2 mmHg (35.0-45.0); PO2 141.4 mmHg (80.0-100.0); pH 7.588 (7.360-7.450); sO2 99.2 % (92.0-98.0)
[2019-08-21 16:05] LABS: RBC 1.72 mil/uL (4.50-6.00)
[2019-08-21 16:07] LABS: MCH 34.9 pg (26.0-34.0); MCHC 32.9 g/dL (28.0-37.0); MCV 105.9 fL (80.0-100.0); PLATELET COUNT 56 thou/uL (150-400); RDW 31.5 % (10.5-14.5); WBC 8.6 thou/uL (4.0-11.0)
[2019-08-21 16:08] LABS: HEMATOCRIT 18.2 % (42.0-52.0)
[2019-08-21 16:12] LABS: CALCIUM 8.4 mg/dL (8.5-10.1); CREATININE 2.3 mg/dL (0.7-1.3); POTASSIUM 3.7 mmol/L (3.5-5.1)
[2019-08-21 16:19] LABS: ALBUMIN 2.1 g/dL (3.4-5.0); TOTAL BILIRUBIN 1.3 mg/dL (<0.1-1.0); TOTAL PROTEIN 5.7 g/dL (6.4-8.2)
[2019-08-21 16:29] LABS: FIBRINOGEN 237.4 mg/dL (210-360); INR 3.7; PROTIME 38.5 Seconds (9.3-11.4)
[2019-08-21 16:31] LABS: APTT 157.1 Seconds (24.5-32.8)
[2019-08-21 16:54] LABS: ANISOCYTOSIS 3+; HYPOCHROMASIA 1+; MACROCYTES 1+; METAMYELOCYTES 2 %
[2019-08-21 16:55] LABS: PLATELET ESTIMATE DECREASED
[2019-08-21 16:56] LABS: SCHISTOCYTES 1+
[2019-08-21 21:31] LABS: CALCIUM 8.1 mg/dL (8.5-10.1); CREATININE 2.4 mg/dL (0.7-1.3); POTASSIUM 3.8 mmol/L (3.5-5.1)
[2019-08-22] VITALS (44 sets, daily range): BP systolic 91–134; BP diastolic 40–72
[2019-08-22 04:34] LABS: HEMATOCRIT 23.9 % (42.0-52.0); HEMOGLOBIN 7.9 gm/dL (14.0-18.0); MCHC 33.1 g/dL (28.0-37.0); MCV 102.7 fL (80.0-100.0); PLATELET COUNT 82 thou/uL (150-400); RBC 2.33 mil/uL (4.50-6.00); RDW 28.8 % (10.5-14.5); WBC 11.8 thou/uL (4.0-11.0)
[2019-08-22 04:47] LABS: CALCIUM 8.1 mg/dL (8.5-10.1); CREATININE 2.6 mg/dL (0.7-1.3); POTASSIUM 3.8 mmol/L (3.5-5.1)
[2019-08-22 09:51] LABS: ABSOLUTE NEUTROPHILS 9.2 thou/uL (1.4-8.2); ANISOCYTOSIS 2+; HYPOCHROMASIA 2+; MACROCYTES 2+; METAMYELOCYTES 3 %; PLATELET ESTIMATE SLIGHTLY DECREASED
--- NOTE | 2019-08-22 10:36 | NUR ---
Nutrition: When appropriate to resume enteral feeds, REC Nepro at 50 mL/hr goal x 24 hrs if pt to remain NPO.
[2019-08-22 11:48] LABS: CALCIUM 7.9 mg/dL (8.5-10.1); POTASSIUM 3.5 mmol/L (3.5-5.1)
[2019-08-22 12:53] LABS: INR 3.1; PROTIME 32.5 Seconds (9.3-11.4)
--- NOTE | 2019-08-22 13:52 | NUR ---
Chart reviewed and case discussed with the care team. He is a medically complex pt known to gaby from recent dc'd to [facility] on 08/15/19. He had been there prior to that admission. He is currently in the ICU now on the Vent due to worsening respiratory failure and aspiration pneumnia. He is sleeping at this time and getting dialysis. He is normally on a MWF schedule. His dtr is his next of kin contact and staff report his she was here this am and updated. Dr. Minori to reach out to her about his retirement plan of care. He has a trach and peg with ng in at this time. He is being seen by wound care and ID as well as renal and pulmonary. [facility] liason updated. Brian meeting/event planner to fax the admission h/p. [facility] is following along and can accept him for readmission when medically ready. Will follow.
--- NOTE | 2019-08-22 14:49 | NUR ---
ON THE VENT PER TRACH, VITALS STABLE, ON LEVO FOR BP SUPPORT. DENIES PAIN. FAMILY AT THE BEDSIDE EARLIER TODAY AND WAS UPDATED BY DR. ROBERTSON. NGT TO LIS. HEMODIALYSIS COMPLETED BY HEAD LOFT WORKER AND TOLERATED WELL. WILL CONTINUE WITH POC.
--- NOTE | 2019-08-22 15:57 | NUR ---
PT IS FROM [facility] FAXED CLINICAL UPDATE SPOKE WITH RUDOLPH IN ADM HE RECEIVED UPDATE. DP TO FOLLOW.
[2019-08-23] VITALS (36 sets, daily range): BP systolic 105–154; BP diastolic 53–89
[2019-08-23 05:14] LABS: WBC 6.8 thou/uL (4.0-11.0)
[2019-08-23 05:20] LABS: HEMOGLOBIN 6.9 gm/dL (14.0-18.0); MCH 35.4 pg (26.0-34.0); MCHC 34.9 g/dL (28.0-37.0); MCV 101.5 fL (80.0-100.0); PLATELET COUNT 49 thou/uL (150-400); RBC 1.94 mil/uL (4.50-6.00); RDW 29.2 % (10.5-14.5)
[2019-08-23 05:23] LABS: CALCIUM 8.3 mg/dL (8.5-10.1); CREATININE 1.9 mg/dL (0.7-1.3); POTASSIUM 3.3 mmol/L (3.5-5.1)
[2019-08-23 05:29] LABS: HEMATOCRIT 19.7 % (42.0-52.0)
--- NOTE | 2019-08-23 06:46 | NUR ---
Received report from offgoing RN and assumed patient care. Patient is very sweet and pleasant and tries to communicate by hand gestures and mouthing words. Patient shakes his head to yes/no questions. Patient noted to have several open wounds that were bleeding on his sacrum area. Additionally, patient's temperature dropped and the elzbieta hugger was placed. Patient also treated for hypoglycemia during this shift. Patient's BP remained stable and the Levophed was stopped.
[2019-08-23 09:08] LABS: ABSOLUTE NEUTROPHILS 5.6 thou/uL (1.4-8.2); ANISOCYTOSIS 3+; MACROCYTES 1+; METAMYELOCYTES 2 %; PLATELET ESTIMATE DECREASED
--- NOTE | 2019-08-23 10:40 | NUR ---
ON THE VENT PER TRACH AND TOLERATING WELL. VITALS STABLE, HYPOTHERMIC WITH BEAR HUGGER IN PLACE. NO COMPLAINTS AT THIS TIME. AV FISTULA BOAZ OOZING AND DRESSING CHANGED. DENIES PAIN. NGT TO LIS AND ORDERS RECEIVED TO START TUBEFEEDING. FAMILY UPDATED ON POC. WILL CONTINUE TO MONITOR.
[2019-08-23 12:37] LABS: INR 2.6; PROTIME 27.4 Seconds (9.3-11.4)
[2019-08-23 13:28] LABS: BE(vivo) 4.7 mmol/L (-2 to +3); HCO3 27.8 mmol/L (22.0-26.0); PCO2 34.3 mmHg (35.0-45.0); PO2 165.2 mmHg (80.0-100.0); pH 7.526 (7.360-7.450); sO2 99.3 % (92.0-98.0)
--- NOTE | 2019-08-23 13:46 | NUR ---
WOUND CONSULT; THIS IS A KNOWN PATIENT TO ME HE WAS ADMITTED TO [facility] REC[facility]. THE WOUNDS ARE IMPROVED SINCE LAST ENCOUNTER. NO S/S OF INFECTION. HE WOUND BEDS HAVE VIABLE TISSUE. THE SACRUM IS A RESOLVING STAGE 3. RECOMMENDATIONS; BOARDER FOAM TO THE RIGHT HEEL AND THE SACRUM CLEANSE WITH NS/OR WOUND CLEANSER, APPLY XEROFORM TO THE WOUND BED, COVER WITH A BOARDER FOAM, CHANGE M/W/F PRN DISCUSSED WITH AMRIT
--- NOTE | 2019-08-23 15:08 | NUR ---
WENT DOWN TO RADIOLOGY FOR CT CHEST AND TOLERATED WELL.
[2019-08-23 16:06] LABS: HEPATITIS B SURFACE AG Negative (Negative)
[2019-08-24] VITALS (47 sets, daily range): BP systolic 108–149; BP diastolic 53–76
[2019-08-24 05:46] LABS: RBC 1.79 mil/uL (4.50-6.00); WBC 5.9 thou/uL (4.0-11.0)
[2019-08-24 05:49] LABS: MCH 34.9 pg (26.0-34.0); MCHC 33.9 g/dL (28.0-37.0); MCV 102.7 fL (80.0-100.0); RDW 29.2 % (10.5-14.5)
[2019-08-24 05:52] LABS: HEMOGLOBIN 6.2 gm/dL (14.0-18.0)
[2019-08-24 05:53] LABS: HEMATOCRIT 18.4 % (42.0-52.0)
[2019-08-24 05:57] LABS: CALCIUM 8.1 mg/dL (8.5-10.1); CREATININE 2.6 mg/dL (0.7-1.3); POTASSIUM 3.5 mmol/L (3.5-5.1)
[2019-08-24 06:00] LABS: INR 2.4; PROTIME 25.2 Seconds (9.3-11.4)
--- NOTE | 2019-08-24 07:47 | NUR ---
Pt received versed x 2 through the night for restlessness, with good effect, his heart rate decreased, BP was stable, and his respiratory rate decreased when the prn morphine was given. Pt Nepro was only advanced to 25 ml/hr, he had residuals noted, his ABD remains firm/rounded, but bowel sounds are present. He remains anuric, receiving dialysis today, and one unit of PRBC's for Hgb of 6.2. Pt's blood glucose level remains low, from 70-80, he is NPO at this time, has an right nare NGT that is patent, flushes freely. He has mittens in place to protect medical devices.
--- NOTE | 2019-08-24 11:47 | NUR ---
0945 PT GIVEN 1 UNIT PRBC DURING DIALYSIS. BLOOD ADMINISTERED BY DIALYSIS NURSE. VITALS RECORDED BY PT'S NURSE. BLOOD VERIFIED BY 2 [facility] NURSES.
--- NOTE | 2019-08-24 14:02 | NUR ---
FOLLOWING FOR DC PLANNING. CLINICAL INFO REVIEWED. PT REMAINS ON VENT, PULM NOTE INDICATES PT NEEDS THORACENTESIS ON RIGHT ONCE INR ALITTLE LOWER. NO W/E DC PLANNED PER HOSPITALIST. UPDATED [facility] FROM [facility] AND FAXED CLINICAL UPDATES TO [facility]. DC PLAN TO RETURN TO [facility] WHEN MEDICALLY READY.
--- NOTE | 2019-08-24 14:46 | NUR ---
ASSUMED CARE AT 0700. PT IS AWAKE AND APPEARS TO BE ALERT TO SELF. PT IS TRACHED AND VENTED AT THIS TIME. PT WAS HYPOTHERMIC AT SHIFT CHANGE. KAYLEEN OLVERA APPLIED. PT HAD DIALYSIS TODAY AND RECEIVED 1 UNIT OF PRBC DURING DIALYSIS. DIALYSIS NURSE STATED SHE REMOVED 1.8L OF FLUID. OTHER THAN TEMPERATURE, VSS. PT HAS TUBE FEEDING WITH AT 25 CC/HR WITH GOAL RATE OF 50.
--- NOTE | 2019-08-24 14:52 | NUR ---
SENT UPDATED PROGRESS NOTES, RECEIVED FAX CONFIRMATION, CALLED RECEIVED.
[2019-08-24 15:24] LABS: MCH 32.9 pg (26.0-34.0)
[2019-08-24 15:25] LABS: HEMATOCRIT 22.7 % (42.0-52.0); HEMOGLOBIN 7.8 gm/dL (14.0-18.0); MCHC 34.1 g/dL (28.0-37.0); RBC 2.36 mil/uL (4.50-6.00); WBC 8.4 thou/uL (4.0-11.0)
[2019-08-24 15:26] LABS: MCV 96.3 fL (80.0-100.0)
[2019-08-24 15:39] LABS: INR 2.1; PROTIME 21.5 Seconds (9.3-11.4)
--- NOTE | 2019-08-24 18:55 | HC ---
[facility] [place] [address] CONSULTATION Name: SIS JEFFRIES Room #: 241-P ADM IN M.R.#: [id number] Admission: 08/21/19 Attend Phys: Seferino Chacon MD Discharge: Date of : 50 Report #: [id number] THIS REPORT FOR: //name// CC: Vishnu Chacon DATE OF SERVICE: 08/21/2019 INFECTIOUS DISEASE CONSULTATION REASON FOR CONSULTATION: I was asked to evaluate concerning septic shock. HISTORY OF PRESENT ILLNESS: A 68-year-old who transfers acutely from [facility] due to septic shock. The patient has underlying history of end-stage renal disease, diabetes, mechanical mitral valve repair, cirrhosis of the liver. He also has peripheral vascular disease and a left pbebf-gqu-qoek amputation. Initially treated at [facility]. Over the last several weeks, he has had issues with bleeding from his left upper extremity AV fistula. On 08/12/2019, he was transferred to [facility] for Interventional Radiology to repair his AV fistula. This was undertaken and was returned to [facility] several days ago. Yesterday morning, the patient began nausea and vomiting. He apparently aspirated while he was weaning from the ventilator; placed back on the ventilator. He then became hypothermic and tachycardic, dropped his blood pressure into the 80s. Received IV fluids, broad antibiotic coverage; did not improve and therefore was transferred to Intensive Care Unit for further management. He still had some issues of bleeding from his fistula. His hemoglobin dropped down to 6. He has had moderate amount of tracheal secretions on an FiO2 of 40%. Chest x-ray revealed right lower lobe, right middle lobe and left lower lobe infiltrates. He has had liquid stools and C. diff was positive. He has had MDRO gram-negative organisms identified from his tracheal secretions. The patient was unable to give any further details. He has remained encephalopathic. REVIEW OF SYSTEMS: Ten-point review of systems was negative other than what has been described above. Dialysis continues to run through the left upper extremity. ALLERGIES: None. MEDICATIONS: As noted on his MAR including vancomycin, meropenem, enteral vancomycin that was dosed last evening, now on Zosyn. PAST MEDICAL HISTORY: End-stage renal disease; cirrhosis of the liver; ascites; [address] [address] CONSULTATION Name: SIS JEFFRIES Room #: 241-P [facility] IN M.R.#: [id number] Admission: 08/21/19 Attend Phys: Seferino Chacon MD Discharge: Date of : 50 Report #: [id number] mitral valve prosthesis, mechanical; C. difficile colitis; VRE bacteremia; respiratory failure, status post tracheostomy; left upper extremity AV fistula with central stenosis; left eexyv-ncy-zjee amputation; tracheostomy. SOCIAL HISTORY: No report of alcohol or drug abuse. Unclear if he is a smoker. FAMILY HISTORY: Noncontributory. PHYSICAL EXAMINATION: GENERAL: Afebrile. He is on a heating blanket. VITAL SIGNS: Blood pressure 99/45, pulse 76. He is now off Levophed. Stools are loose. Tracheostomy without drainage on 40% FiO2, AC mode. SKIN: Multiple pressure wounds to his pelvis posteriorly. Right heel wound and scarring. No purulent drainage. No adenopathy palpable. Left upper extremity AV fistula with bleeding on the dressing. EYES: Edematous. MOUTH: Without lesion. NECK: Supple. LUNGS: Coarse in the left posterior chest. HEART: Regular without murmur. ABDOMEN: Protuberant, did not appear tender. RECTAL: Not performed as there was liquid stool throughout. He was incontinent. GENITOURINARY: External genitalia without mass or lesion. EXTREMITIES: With no clubbing or cyanosis. Left BKA stump was intact. The patient did move all extremities. NEUROLOGIC: Mood was encephalopathic. LABORATORY STUDIES: Sodium 137, potassium 3.8, bicarbonate 31, creatinine 2.4, lactate 1.6. Hemoglobin 6, WBC 8.6, platelet 56,000, 38% bands, 43% neutrophils, 1+ schistocytes, few stomatocytes. Procalcitonin 9. ABG on 40% FiO2 showed a pO2 of 141, pCO2 of 30, pH 7.58. Lactate 1.9, bicarbonate 28. IMAGING: Chest x-ray, right mid lower lobe infiltrate and medial left basilar infiltrate. Blood cultures, sputum culture are pending. IMPRESSION: A 68-year-old with: 1. Septic shock, thought secondary to aspiration pneumonia. Has history of multidrug-resistant organisms including resistant Klebsiella and Stenotrophomonas. 2. Clostridium difficile colitis. 3. Multisystem failure with encephalopathy. 4. Diabetes and end-stage renal disease along with end-stage liver disease. 5. Encephalopathy. [facility] [address] [place] [address] CONSULTATION Name: SIS JEFFRIES Room #: 241-P [facility] IN M.R.#: [id number] Admission: 08/21/19 Attend Phys: Seferino Chacon MD Discharge: Date of : 50 Report #: [id number] 6. Left upper extremity AV fistula stenosis and hemorrhaging. 7. Anemia and thrombocytopenia. RECOMMENDATIONS: Continue broad antibiotic coverage. Make adjustments to medications pending culture results. Continue to treat for C. difficile. Blood transfusion as needed. Broadbent is poor given his multiple comorbidities. <ELECTRONICALLY SIGNED> By: Bobo Kumar MD 08/24/19 1855 [id number] Bobo Kumar MD /nt
[2019-08-25] VITALS (25 sets, daily range): BP systolic 97–138; BP diastolic 48–73
[2019-08-25 06:12] LABS: HEMATOCRIT 21.2 % (42.0-52.0); HEMOGLOBIN 7.2 gm/dL (14.0-18.0); MCH 32.8 pg (26.0-34.0); MCHC 33.7 g/dL (28.0-37.0); MCV 97.3 fL (80.0-100.0); RBC 2.18 mil/uL (4.50-6.00); RDW 29.7 % (10.5-14.5); WBC 6.8 thou/uL (4.0-11.0)
[2019-08-25 06:20] LABS: CALCIUM 7.8 mg/dL (8.5-10.1); POTASSIUM 3.5 mmol/L (3.5-5.1)
--- NOTE | 2019-08-25 19:19 | NUR ---
PT RESTLESS/ AGITATED THIS AM AND RR 40-50'S. MIDAZOLAM AND MORPHINE GIVEN. RESTING COMFORTABLY FOLLOWING. WILL FOLLOW SIMPLE COMMANDS. WRITING TO COMMUNICATE WITH FAMILY. NODS TO YES/NO QUESTIONS. HIGH RESIDUAL OF TUBE FEEDING TODAY. DR PENN AWARE. TUBE FEEDING ON HOLD MOST OF THE DAY TODAY. BG LOW TODAY. REMAINS ON D10 AND D50 GIVEN DOCUMENTED. SPOKE WITH PT'S DAUGHTER AND UPDATED HER. REPORT GIVEN TO AN EMPLOYEE SPONSOR OR ADVOCATE AND RN.
[2019-08-26] VITALS (27 sets, daily range): BP systolic 104–152; BP diastolic 54–88
[2019-08-26 04:59] LABS: CALCIUM 7.9 mg/dL (8.5-10.1); CREATININE 2.6 mg/dL (0.7-1.3); POTASSIUM 3.5 mmol/L (3.5-5.1)
[2019-08-26 05:01] LABS: RDW 29.2 % (10.5-14.5)
[2019-08-26 05:06] LABS: HEMATOCRIT 20.4 % (42.0-52.0); MCH 33.3 pg (26.0-34.0); MCHC 34.1 g/dL (28.0-37.0); MCV 97.4 fL (80.0-100.0); RBC 2.09 mil/uL (4.50-6.00); WBC 6.9 thou/uL (4.0-11.0)
--- NOTE | 2019-08-26 05:59 | NUR ---
ASSUMED CARE OF PATIENT AT 1900. VSS. NG TUBE RESIDUAL REMAIN HIGH. ORDER FOR KUB OBTAINED FOR AM WELL HOLDING TUBE FEED. BLOOD SUGARS REMAIN UNSTABLE, CHECKED PER PROTOCOL AND TREATED PER PROTOCOL. NOT PROGRESSING TOWARDS POC GOALS.
--- NOTE | 2019-08-26 08:35 | HC ---
[facility] [place] [address] [address] CONSULTATION Name: SIS JEFFRIES Room #: 241-P ADM IN M.R.#: [id number] Admission: 08/21/19 Attend Phys: Seferino Chacon MD Discharge: Date of : 50 Report #: [id number] THIS REPORT FOR: //name// CC: Vishnu Chacon DATE OF SERVICE: 08/22/2019 REASON FOR CONSULTATION: End-stage renal disease. REASON FOR PRESENTATION: Sent from his LTAC facility because of worsening respiratory situation and potential aspiration pneumonitis. HISTORY OF PRESENT ILLNESS: Those were obtained from the medical chart as the patient is currently maintained on the vent. He is a well-known patient to me from the [facility] facility. He has an extensive past medical history including respiratory failure, C. diff, cirrhosis of the liver, bleeding from his AV fistula, end-stage renal disease, maintained on hemodialysis, status post mitral valve prosthesis chronically maintained on Coumadin. He is also known to have peripheral vascular disease and the left below-knee amputation few years ago. We had some issues with his blood pressure while on dialysis at the nursing facility on Tuesday. On Tuesday, the patient started to have some issues with his pulmonary status and was thought to have some aspiration and was sent to our facility to further evaluate. He is nonverbal and not able to provide me with details of the history. He also is known to have C. diff. PAST MEDICAL HISTORY: 1. Bacteremia. 2. End-stage renal disease, maintained on hemodialysis every Tuesday, Tuesday and Tuesday. 3. Respiratory failure, on the vent. 4. Status post tracheostomy. 5. Status post left below-knee amputation. 6. Left AV fistula. 7. Mitral valve prosthesis. 8. Chronic anticoagulation. 9. Anemia. 10. Thrombocytopenia. 11. Cirrhosis of the liver. 12. Recent Clostridium difficile. SOCIAL HISTORY: He resides at the [facility]. REVIEW OF SYSTEMS: Unobtainable given the patient's mental status and the inability to communicate. [facility] [address] [place] [address] CONSULTATION Name: NESHASIS Room #: 241-P ADM IN M.R.#: [id number] Admission: 08/21/19 Attend Phys: Seferino Chacon MD Discharge: Date of : 50 Report #: [id number] ALLERGIES: None. FAMILY HISTORY: Unobtainable given the patient's current mental status. MEDICATIONS: Currently, the patient is on the followin. Albuterol. 2. D10. 3. Famotidine. 4. Meropenem. 5. Morphine. 6. Vancomycin. 7. Levophed. PHYSICAL EXAMINATION: GENERAL: The patient is on the vent. VITAL SIGNS: Pulse rate is 67, respiratory rate is 20, blood pressure is 112/49. HEAD AND NECK: Tracheostomy is present. CHEST: Limited air entry on the right side. CARDIOVASCULAR: No rub detected. ABDOMEN: Distended. EXTREMITIES: Lower extremities below-knee amputation. LABORATORY VALUES: White blood cell count 11.8, hemoglobin is up to 7.9, platelet is 82. Sodium from yesterday was 137, potassium was 3.8, BUN is 46, creatinine is 2.6. He is running into major episodes of hypoglycemia. Chest x-ray with what seems to be bilateral airspace diseases. ASSESSMENT, IMPRESSION AND PLAN: 1. Septic shock. 2. Aspiration with healthcare-associated pneumonia. 3. End-stage renal disease. 4. Anemia. 5. Chronic anticoagulated status due to mitral valve replacement. 6. Clostridium difficile colitis. 7. Cirrhosis of the liver. 8. Thrombocytopenia. 9. We will arrange for the patient to have his usual hemodialysis today. We continued to have major issues with bleeding from his AV fistula. Currently, his Coumadin is being held given the fact that his INR is 3.7. 10. Infectious Disease team has started investigations for his septic shock and he was initiated on appropriate antibiotic. [address] [address] CONSULTATION Name: SIS JEFFRIES Room #: 241-P ADM IN .R.#: [id number] Admission: 08/21/19 Attend Phys: Seferino Chacon MD Discharge: Date of : 50 Report #: [id number] 11. Pulmonary team has been consulted for the management of his vent. 12. I will reach out to his family to address long-term care. <ELECTRONICALLY SIGNED> By: Della Rivero MD 08/26/19 0835 [id number] Della Rivero MD /nt
[2019-08-26 12:31] LABS: ANION GAP < 0 mmol/L (7-16); BUN 27 mg/dL (7-18); CALCIUM 7.9 mg/dL (8.5-10.1); CHLORIDE 93 mmol/L (98-107); CO2 30 mmol/L (21-32); CREATININE 2.9 mg/dL (0.7-1.3); GLUCOSE 64 mg/dL (74-106); MAGNESIUM 1.6 mg/dL (1.8-2.4); POTASSIUM 3.2 mmol/L (3.5-5.1)
[2019-08-26 12:38] LABS: SODIUM 120 mmol/L (136-145)
--- NOTE | 2019-08-26 13:17 | NUR ---
INFORMED OF 1200 NA+ RESULT. CALL TO TO INFORM PER HER REQUEST VIA A.S.--VW
--- NOTE | 2019-08-26 14:56 | NUR ---
1345- updated,orders noted.--vw
[2019-08-27] VITALS (48 sets, daily range): BP systolic 90–164; BP diastolic 39–71
[2019-08-27 04:48] LABS: HEMOGLOBIN 6.6 gm/dL (14.0-18.0)
[2019-08-27 04:49] LABS: MCH 33.2 pg (26.0-34.0); MCHC 33.9 g/dL (28.0-37.0); RBC 1.98 mil/uL (4.50-6.00); RDW 28.7 % (10.5-14.5); WBC 5.1 thou/uL (4.0-11.0)
[2019-08-27 04:54] LABS: HEMATOCRIT 19.4 % (42.0-52.0)
[2019-08-27 05:52] LABS: ALBUMIN 1.9 g/dL (3.4-5.0); ANION GAP 8 mmol/L (7-16); BUN 29 mg/dL (7-18); CALCIUM 7.6 mg/dL (8.5-10.1); CHLORIDE 96 mmol/L (98-107); CO2 26 mmol/L (21-32); CREATININE 3.3 mg/dL (0.7-1.3); GLUCOSE 72 mg/dL (74-106); MAGNESIUM 1.6 mg/dL (1.8-2.4); PHOSPHORUS 2.7 mg/dL (2.5-4.9); POTASSIUM 3.5 mmol/L (3.5-5.1); SGOT 46 U/L (15-37); SGPT 19 U/L (30-65); SODIUM 130 mmol/L (136-145); TOTAL BILIRUBIN 0.9 mg/dL (<0.1-1.0); TOTAL PROTEIN 5.5 g/dL (6.4-8.2); TRIGLYCERIDE < 15 mg/dL (<150)
--- NOTE | 2019-08-27 06:00 | NUR ---
REMAINS TRACHED AND VENTED.VERY RESTLESS AT TIMES REMAINS ON MITTEN RESTRAINTS PT PULLED OUT NG TUBE. #16 FR NG REPLACED RIGHT NARE. MORPHINE AND VERSAED FOR SEDATION AND COMFORT. DEXTROSE X 2 FOR LOW BLOOD SUGARS OF 70 TONIGHT REMAINS ON HEPARIN GTT THERAPUTIC APTT 55.2 THIS AM. BATHED ONE BROWN MUCOUS SOFT STOOL THIS AM. S/C FOR DIALYSIS THIS AM. WILL CONT TO MONITOR.
--- NOTE | 2019-08-27 07:00 | NUR ---
DR RICHARDSON HERE TO SEE PT. HE WILL SPEAK TO FAMILY THIS AM ABOUT POSSIBLE PALLATIVE CARE DUE TO HIS DECLINING HEALTH.
--- NOTE | 2019-08-27 10:02 | NUR ---
FAXED CLINICAL UPDATE TO [facility] SPOKE WITH RUDOLPH IN ADM HE RECEIVED UPDATE. DP TO FOLLOW.
--- NOTE | 2019-08-27 12:27 | NUR ---
WOUND CARE F/U ASSESSED WOUNDS W/ EVP AND CHIEF OPERATING OFFICER Vasiliy SZYMANSKI HEEL ULCER W/ SOME PINK GRANULATING TISSUE, STABLE, SACRAM WOUND W/ SOME PINK GRANULATING TISSUE. ALSO STABLE, ENCOURAGED TURNING, OFF LOADING/PRESSURE RELIEF RECOMMENDATIONS; CONT W/ SAME WOUND CARE TO HEEL AND SACRUM 3X WEEK AND PRN, CLEANSE W/ NS OR WOUND CLEANSER, APPLY XEROFORM GAUZE, COVER W/ BORDER FOAM, TURN Q 2 HOURS TOLERATED
[2019-08-28] VITALS (27 sets, daily range): BP systolic 74–127; BP diastolic 37–73
[2019-08-28 03:36] LABS: CALCIUM 7.9 mg/dL (8.5-10.1); FIBRINOGEN 215.1 mg/dL (210-360); INR 1.6; MAGNESIUM 1.6 mg/dL (1.8-2.4); POTASSIUM 3.3 mmol/L (3.5-5.1); PROTIME 16.9 Seconds (9.3-11.4)
[2019-08-28 03:38] LABS: CREATININE 2.3 mg/dL (0.7-1.3)
--- NOTE | 2019-08-28 05:52 | NUR ---
PT BLEEDING FROM CENTRAL LINE INSERTION SITE AND AV FISTULA DRESSING SOAKED IN BLOOD.BLOOD TINGED DRAINAGE FROM NG AND TRACH. DRESSINGS CHANGED. APTT LAB DRAWN AT 0300. APTT 49.CALLED EDMUNDO BOOTHE IF PT SHOULD BE GIVEN BOLUS HEPARIN AND INCREASE RATE OF HEPARIN OR LEAVE THE HEPARIN DRIP AT SAME RATE. SHE SUGGESTED TO CALL DR. MUHAMMAD. DR. MUHAMMAD NOTIFIED AT 0550. GAVE ORDER TO KEEP THE HEPARIN DRIP AT THE SAME RATE WHICH IS 1.2ML/HR AND REDRAW APTT LATER.
[2019-08-28 07:36] LABS: HEMATOCRIT 23.2 % (42.0-52.0); HEMOGLOBIN 7.8 gm/dL (14.0-18.0); MCH 32.1 pg (26.0-34.0); MCHC 33.7 g/dL (28.0-37.0); MCV 95.3 fL (80.0-100.0); RBC 2.44 mil/uL (4.50-6.00); RDW 26.8 % (10.5-14.5); WBC 9.1 thou/uL (4.0-11.0)
[2019-08-28 09:33] LABS: CALCIUM 8.4 mg/dL (8.5-10.1); CREATININE 2.5 mg/dL (0.7-1.3); POTASSIUM 3.8 mmol/L (3.5-5.1)
--- NOTE | 2019-08-28 11:28 | NUR ---
REMAIN ON VENT, SBO, TPN STARTED LAST PM. DAUGHTER HERE THIS AM, NO DPOA IN PLACE, SHE IS ASKING ABOUT GUARDIANSHIP PROCESS AND DPOA. PT NOT CURRENTLY ABLE TO COMPLETE DPOA AND GUARDIANSHIP PROCESS DISCUSSED WITH DTR. CLINICAL UPDATE TO [facility] Y[facility]ERDAY. FROM [facility]. PT WITH POOR LONG TOERM PROGNOSIS PER [facility] PHYSICIANS. DR. LAIRD INDICATES WILL CONSULT PALLIATIVE CARE.
--- NOTE | 2019-08-28 16:06 | NUR ---
PT IS GOING DOWN FOR CT/ TEST THIS EVENING. PREPING NOW. LUNGS ARE COARSE. REMAINS ON HEPARIN DRIP. LEFT ARM FISTULAAND BRUIT. REMAINS ON THE VENT. DIALYSIS PT MWF. NO PAIN NOTED. CAN BE ANXIOUS AT TIMES. MEDS GIVEN FOR THAT AND NAUSEA MEDS THIS AM GIVEN FOR THAT . DR. SALGUERO CONSULT DONE TODAY. FAMILY WAS PRESENT TODAY.
[2019-08-29] VITALS (41 sets, daily range): BP systolic 95–128; BP diastolic 41–67
--- NOTE | 2019-08-29 04:51 | NUR ---
NO OVERNIGHT EVENTS. PT. WAS RESTLESS AT TIMES, BUT SLEPT THROUGH MOST OF SHIFT. TEMPERATURE IS MORE STABLE THIS SHIFT. ASSESSMENTS AND VITAL SIGNS CHARTED. MEDICATION TITRATION CHARTED. CONTINUE TO FOLLOW POC. PT. WILL GET DIALYSIS TODAY. WILL CONTINUE TO MONITOR.
[2019-08-29 05:26] LABS: HEMATOCRIT 22.4 % (42.0-52.0); HEMOGLOBIN 7.6 gm/dL (14.0-18.0)
[2019-08-29 05:28] LABS: MCH 32.4 pg (26.0-34.0); MCV 95.3 fL (80.0-100.0); RBC 2.35 mil/uL (4.50-6.00); RDW 27.2 % (10.5-14.5); WBC 8.7 thou/uL (4.0-11.0)
[2019-08-29 05:39] LABS: CALCIUM 7.8 mg/dL (8.5-10.1); MAGNESIUM 2.1 mg/dL (1.8-2.4); PHOSPHORUS 1.9 mg/dL (2.5-4.9); POTASSIUM 3.9 mmol/L (3.5-5.1)
--- NOTE | 2019-08-29 10:28 | NUR ---
FOLLOWING FOR DC PLANNING. CLINICAL INFO REVIEWED. REMAINS ON VENT, POORLY TOLERATING ANY WEANING. CT ABD FROM YESTERDAY SHOWS NO OBSTRUCTION, BUT PANCOLITIS. TPN AND HEPARIN GTT GOING. HYPOGLYCEMIA ISSUE. BLOODY OOZE FROM LINES. PULM HAD PLANNED FOR THORACENTESIS WHEN COAGS BETTER. DR. SHEA HAS SPOKEN WITH FAMILY ABOUT GOALS OF CARE GIVEN COMORBID CONDITIONS. DAUGHTER WISHES TO COTINUE WITH AGGRESSIVE CARE. HOSPITALIST CONSULTED DR. SALGUERO YESTERDAY AND HE MET WITH DTR 08/28/19 AND WILL CONITNUE TO FOLLOW FOR GOALS OF CARE DISCUSSION. [facility] HERE THIS AM AND UPDATED AND PROVIDED HARD COPY OF UPDATED CLINICAL. [facility] REQUESTING RETURN TODAY. WILL DISCUSS WITH HOSPITALIST AT [facility] AT 1100 AND [facility] TO REVIEW UPDATED CLINICAL AND LET CM KNOW IF ABLE TO ACCEPT BACK TO [facility] TODAY.
[2019-08-29] MEDS ORDERED: FIRVANQ50 MG/1 ML PO (12:51)
[2019-08-29] MEDS ORDERED: HEPARIN-1/100 UNIT/M IVPB (12:51)
[2019-08-29] MEDS ORDERED: TPN ELECTROLYTE20 M1 IV (13:54)
--- NOTE | 2019-08-29 15:35 | NUR ---
Patient DC today to [facility]. Faxed DC Orders/Summary to facility. Spoke with Brenda in Admissions, he received DC Orders. Transport arranged by Ambulance for 15:15. Patients daughter notified of DC and time of transport. Unit notified and Chart Copy per US. RN to call report to [phone].
--- NOTE | 2019-08-29 16:30 | NUR ---
PT DISCHARGED TO [facility]. REPORT GIVEN TO RN. ATTEMPTED TO CALL FAMILY ABOUT BELONGINGS THAT WERE LEFT AT [facility].
== END 2019-08-29 16:28 | DRG 870 ==
LOC: ICU 12:49
PROVIDERS: Hospitalist; Internal Medicine; Internal Medicine Pulmonary Disease; Nurse Practitioner Family; ADMIT Hospitalist
PROC: 5A1955Z Respiratory Ventilation, Greater than 96 Consecutive Hours (ICD-10-PCS; principal; 2019-08-21)
PROC: 05HP33Z Insertion of Infusion Device into Right External Jugular Vein, Percutaneous Approach (ICD-10-PCS; principal; 2019-08-21)
PROC: 30233N1 Transfusion of Nonautologous Red Blood Cells into Peripheral Vein, Percutaneous Approach (ICD-10-PCS; principal; 2019-08-21)
PROC: 5A1D70Z Performance of Urinary Filtration, Intermittent, Less than 6 Hours Per Day (ICD-10-PCS; 2019-08-22)
DX: A41.9 Sepsis, unspecified organism (principal); J69.0 Pneumonitis due to inhalation of food and vomit; J96.21 Acute and chronic respiratory failure with hypoxia; N18.6 End stage renal disease; R65.21 Severe sepsis with septic shock; E43 Unspecified severe protein-calorie malnutrition; A04.72 Enterocolitis due to Clostridium difficile, not specified as recurrent; G93.40 Encephalopathy, unspecified; I50.32 Chronic diastolic (congestive) heart failure; D62 Acute posthemorrhagic anemia; K56.609 Unspecified intestinal obstruction, unspecified as to partial versus complete obstruction; Z68.1 Body mass index [BMI] 19.9 or less, adult; K74.60 Unspecified cirrhosis of liver; E11.51 Type 2 diabetes mellitus with diabetic peripheral angiopathy without gangrene; K72.90 Hepatic failure, unspecified without coma; D69.6 Thrombocytopenia, unspecified; D63.1 Anemia in chronic kidney disease; E78.5 Hyperlipidemia, unspecified; J44.9 Chronic obstructive pulmonary disease, unspecified; E03.9 Hypothyroidism, unspecified; Y95 Nosocomial condition; B96.1 Klebsiella pneumoniae [K. pneumoniae] as the cause of diseases classified elsewhere; D63.8 Anemia in other chronic diseases classified elsewhere; Z93.0 Tracheostomy status; Z95.2 Presence of prosthetic heart valve; Z89.512 Acquired absence of left leg below knee; Z95.4 Presence of other heart-valve replacement; Z99.2 Dependence on renal dialysis; Z79.01 Long term (current) use of anticoagulants; Z93.1 Gastrostomy status; Z87.891 Personal history of nicotine dependence; Z79.899 Other long term (current) drug therapy
CPT/HCPCS: 10078; 10204; 32100; 85076